=== PATIENT | female | born 1950 | race Caucasian/White ===

== ENCOUNTER 2017-09-05 05:01 | Inpatient (IN) | payer OTHER ==
[2017-08-14 13:34] VITALS: Ht 157.5 cm; Wt 83.0 kg
--- NOTE | 2017-08-21 12:36 | PAT Medication Instructions ---
Service Date Aug 21, 2017. Current Home Medication List Acetaminophen (Tylenol), 1,000 MG PO Q6 PRN for Pain Albuterol Hfa (Ventolin Hfa), 2-4 PUFFS INH Q6H PRN for SOB/Wheezing Albuterol Sulfate (Albuterol Sulfate), 1 VIAL NEB Q4 PRN for SOB/Wheezing Aspirin (Aspirin Ec), 81 MG PO HS Atenolol (Tenormin), 25 MG PO QAM Ezetimibe (Zetia), 10 MG PO HS Ferrous Sulfate (Iron), 1 TAB PO QAM Fluticasone Furoate (Inhalatio (Arnuity Ellipta), 1 PUFF INH QAM Glipizide (Glipizide Er), 10 MG PO QAM Lisinopril (Lisinopril), 5 MG PO QAM Meloxicam (Mobic), 7.5 MG PO BID Metformin Hcl (Glucophage), 1,000 MG PO BID Omeprazole (Prilosec), 20 MG PO HS Tramadol (Ultram), 50 MG PO Q4H PRN for Pain Medication Instructions For Your Scheduled Surgery - Per surgeon instructions: Meloxicam (Mobic), 7.5 MG PO BID - Hold the following medications the morning of surgery: Metformin Hcl (Glucophage), 1,000 MG PO BID Lisinopril (Lisinopril), 5 MG PO QAM Glipizide (Glipizide Er), 10 MG PO QAM Ferrous Sulfate (Iron), 1 TAB PO QAM - Take the following medications the morning of surgery with a sip of water: Acetaminophen (Tylenol), 1,000 MG PO Q6 PRN for Pain (okay to take up to 4 hours prior to surgery if needed) Albuterol Hfa (Ventolin Hfa), 2-4 PUFFS INH Q6H PRN for SOB/Wheezing (if needed) Albuterol Sulfate (Albuterol Sulfate), 1 VIAL NEB Q4 PRN for SOB/Wheezing (if needed) Atenolol (Tenormin), 25 MG PO QAM Fluticasone Furoate (Inhalatio (Arnuity Ellipta), 1 PUFF INH QAM Tramadol (Ultram), 50 MG PO Q4H PRN for Pain (okay to take up to 4 hours prior to surgery if needed) - Take the following medications as scheduled the night before surgery: Tramadol (Ultram), 50 MG PO Q4H PRN for Pain (if needed) Omeprazole (Prilosec), 20 MG PO HS Metformin Hcl (Glucophage), 1,000 MG PO BID Ezetimibe (Zetia), 10 MG PO HS Aspirin (Aspirin Ec), 81 MG PO HS Acetaminophen (Tylenol), 1,000 MG PO Q6 PRN for Pain (if needed) Albuterol Hfa (Ventolin Hfa), 2-4 PUFFS INH Q6H PRN for SOB/Wheezing (if needed) Albuterol Sulfate (Albuterol Sulfate), 1 VIAL NEB Q4 PRN for SOB/Wheezing (if needed) If you have any questions please call us at [phone] or [phone] or [phone]
[2017-09-05] VITALS (9 sets, daily range): BP systolic 93–125; BP diastolic 55–78; PULSE 63–72; TEMP 36.5–36.8; O2SAT 94–100
[~2017-09-05] VITALS: Ht 157.5 cm; Wt 83.0 kg
--- NOTE | 2017-09-05 00:06 | HISTORY & PHYSICAL EXAMINATION ---
DATE OF ADMISSION: 09/05/2017 CHIEF COMPLAINT: Primary osteoarthritis of the left hip. HISTORY OF PRESENT ILLNESS: Kristi is a very pleasant 66-year-old female who is having a several year history of increasing left hip pain. X-rays and clinical examination were diagnostic for primary osteoarthritis of the left hip. After failing extensive conservative treatment, she has elected to proceed with a left total hip arthroplasty. PAST MEDICAL HISTORY: Significant for non-insulin dependent diabetes, hyperlipidemia, hypertension, asthma, Lyme's disease, compression fracture at T9, and rheumatic fever as a child. PAST SURGICAL HISTORY: Significant for a tonsillectomy, hysterectomy, bilateral total knee arthroplasty done in [place], cholecystectomy, and a left total shoulder arthroplasty in 2016. ALLERGIES: FORMOTEROL, MOMETASONE, NAPROSYN, AND NITROFURANTOIN. MEDICATIONS: Include Glucophage, glipizide, Mobic, albuterol, Arnuity, aspirin, lisinopril, atenolol, tramadol, omeprazole, Zetia, and iron. FAMILY HISTORY: Denies. SOCIAL HISTORY: She is . She rarely drinks. She is active. Her is able to help take care of her after surgery. REVIEW OF SYSTEMS: She complains of left hip pain. All other pertinent review of systems are negative. PHYSICAL EXAMINATION: GENERAL: She is awake, alert, and oriented x3. She is in no apparent distress. She is very pleasant. HEENT: Pupils equal, round, reactive to light. Extraocular movements intact. Oral mucosa is pink and moist. HEART: Regular rate per radial pulse. LUNGS: Mily symmetrically bilaterally with no audible breath sounds. ABDOMEN: Soft, nontender, nondistended. MUSCULOSKELETAL: On physical examination of the hip, her leg lengths are equal. She has significant pain in the left groin. She is unable to flex to about 90 degrees. She only has 30 degrees of external rotation, 10 degrees of internal rotation. She has significant pain on range of motion. All of her pain is located in her groin. She does have a pannus, but it is fairly soft. IMAGING DATA: X-rays do show advanced osteoarthritis of the left hip with joint space narrowing, osteophyte formation, and [id number] articulation. IMPRESSION: Primary osteoarthritis of the left hip. PLAN: We will proceed with an anterior left total hip arthroplasty. Postoperatively, she will be placed on aspirin twice a day for DVT prophylaxis and kept in the hospital for postoperative medical management. She will be discharged to home with home nursing agency upon discharge.
[~2017-09-05 05:01] MED LIST: ACET-1256 PO; ALBU1.257 NEB; ASPI81TA28 PO; ATEN-173 PO; EZET10TA63 PO; FERR1TAB61 PO; FLUT1INH5 INH; GLIP-197 PO; LISI-730 PO; MELO7.5T5 PO; METF1000 PO; PRLSR20 PO; TRAM-10 PO; VNTHFA/IN INH
[2017-09-05] MEDS ORDERED: LACTATED RINGER'S 1000ML 500 ML IV SCH (06:00)
[2017-09-05] MEDS ORDERED: GABAPENTIN 300 MG CAP PO SCH (06:00)
[2017-09-05] MEDS ORDERED: LACTATED RINGER'S 1000ML IV SCH (06:00)
[2017-09-05] MEDS ORDERED: LACTATED RINGER'S 1000ML 1,000 ML IV SCH (06:00)
[2017-09-05] MEDS ORDERED: ROPIVACAINE 5MG/ML 30 ML 150 MG, BUPIVACAINE 0.5% MPF INJ 30 ML, EpINEphrine HCL INJ 0.... INFIL SCH ×8 (06:00)
[2017-09-05] MEDS ORDERED: FAMOTIDINE 20 MG TAB PO SCH (06:00)
[2017-09-05] MEDS ORDERED: ACETAMINOPHEN 500 MG TAB PO SCH (06:00)
[2017-09-05] MEDS ORDERED: BUPIVACAINE 0.5 % 5 MG/1 ML PF 10ML VIAL ONE (06:23)
[2017-09-05] MEDS: TRANEXAMIC ACID INJ 1,000 MG x 2 Bags IV SCH ×4 (06:30→07:00)
[2017-09-05] MEDS ORDERED: FENTANYL CITRATE INJ 50 MCG/1 ML 2 ML VIAL ONE (06:41)
[2017-09-05] MEDS ORDERED: MIDAZOLAM HCL 1 MG/ML 2ML VIAL ONE ×2 (06:41)
[2017-09-05] MEDS ORDERED: LIDOCAINE HCL 2% 2 ML VIAL (20MG/ML) ONE (06:46)
[2017-09-05] MEDS ORDERED: PROPOFOL IV EMULSION 10 MG/ML 20 ML VIAL ONE (06:46)
[2017-09-05] MEDS ORDERED: BACITRACIN 50000 UNIT VIAL ONE (06:52)
[2017-09-05] MEDS ORDERED: ORTHO JOINT ANESTHETIC ONE (06:52)
[2017-09-05] MEDS ORDERED: ONDANSETRON INJ 2 MG/ML 2 ML VIAL ONE (06:53)
--- NOTE | 2017-09-05 07:06 | History & Physical Bridge Note ---
H&P Re-Evaluation Bridge Note: I have examined the patient, reviewed the History & Physical and in the interval since the performance of the History & Physical I have noted the following changes of clinical significance: No changes noted
[2017-09-05] MEDS: CEFAZOLIN 2000MG IV PUSH 15 ML IV SCH ×2 (07:13→15:12)
[2017-09-05] MEDS ORDERED: EpHEDrine SULFATE 50MG/5ML SYR ONE (07:52)
[2017-09-05] MEDS ORDERED: PHENYLEPHRINE HCL INJ 10 MG/ML VIAL ONE (08:19)
[2017-09-05] MEDS ORDERED: HYDROmorphone INJ 0.5 MG/0.5 ML SYR IV PRN (09:00)
[2017-09-05] MEDS ORDERED: ONDANSETRON INJ 2 MG/ML 2 ML VIAL IV PRN ×2 (09:00→09:15)
[2017-09-05] MEDS ORDERED: LABETALOL HCL IV 5 MG/ML 20ML IV PRN (09:00)
[2017-09-05] MEDS ORDERED: MEPERIDINE HCL 25 MG/ML CARP IV PRN (09:00)
[2017-09-05] MEDS ORDERED: FENTANYL CITRATE INJ 50 MCG/1 ML 2 ML VIAL IV PRN (09:00)
[2017-09-05] MEDS ORDERED: EpHEDrine SULFATE INJ 50 MG/ML AMP IV PRN (09:00)
[2017-09-05] MEDS ORDERED: ATROPINE SULFATE 0.1 MG/ML 5ML SYR IV PRN (09:00)
[2017-09-05] MEDS ORDERED: PHARMACY GLYCEMIC MGMT CONSULT PRN (09:08)
--- NOTE | 2017-09-05 09:08 | [facility] Post Operative Brief Note ---
Immediate Operative Summary Operative Date Sep 05, 2017. Pre-Operative Diagnosis Primary osteoarthritis of the left hip Post-Operative Diagnosis Primary osteoarthritis of the left hip Procedure(s) Performed Left Anterior Total Hip Arthroplasty- Uncemented Surgeon Dr. Santiago Manager Night Surgeon(s) Rufino Infante PA-C Estimated Blood Loss 250 ml Findings Consistent with Post-Op Diagnosis Specimens a. left femoral head Anesthesia Type Spinal MAC
[2017-09-05] MEDS ORDERED: BISACODYL 10 MG SUPP PR PRN (09:15)
[2017-09-05] MEDS ORDERED: CEFAZOLIN IV 2,000 MG in DEXTROSE 5% 50ML 50 ML IV SCH (09:15)
[2017-09-05] MEDS ORDERED: CARBOHYDRATES FOR HYPOGLYCEMIA PO PRN (09:15)
[2017-09-05] MEDS ORDERED: DEXTROSE 50% 50 ML SYR IV PRN (09:15)
[2017-09-05] MEDS ORDERED: GLUCOSE 40% GEL 15 GM TUBE PO PRN (09:15)
[2017-09-05] MEDS ORDERED: ALBUTEROL HFA 8 GM INHALER INH PRN (09:15)
[2017-09-05] MEDS ORDERED: GLUCAGON FOR INJ 1 MG VIAL SQ PRN (09:15)
[2017-09-05] MEDS ORDERED: MoRPHine SULFATE 2 MG/ML CARP IV PRN (09:15)
[2017-09-05] MEDS ORDERED: METOCLOPRAMIDE HCL INJ 5 MG/ML 2 ML VIAL IV PRN (09:15)
[2017-09-05] MEDS ORDERED: MAGNESIUM HYDROXIDE SUSP 30 ML UDC PO PRN (09:15)
[2017-09-05] MEDS ORDERED: SOD PHOSPHATE/SOD BIPHOSPHATE ENEMA 132 ML BTL PR PRN (09:15)
[2017-09-05] MEDS ORDERED: GLUCOSE 10 TABS/TUBE PO PRN (09:15)
--- NOTE | 2017-09-05 09:16 | Discharge Instructions ---
Discharge Instructions Date of Service Sep 05, 2017. Admission Reason for Admission: Left Hip Degenerative Joint Disease Discharge Discharge Diagnosis / Problem: Left Total Hip Discharge Goals Goal(s): Decrease discomfort, Improve function Activity Recommendations Activity Limitations: as noted below . Instructions / Follow-Up Instructions / Follow-Up Activity and Therapy Recommendations: * If you are using [facility] then Physical Therapy will be provided until they feel you are ready to start Outpatient Physical Therapy. If you are not using a Home Health agency then Outpatient Physical Therapy should start about 3-5 days from your day of surgery. Therapy will last about 3-6 weeks * You were shown a series of exercises in the hospital. Do these exercises three times each day including the exercises you were shown in physical therapy. * Get up and walk several times each day.~ For the first four weeks, try not to stand or walk for more than one hour at a time. If you do stand or walk for more than one hour, you will not hurt anything, but your leg will likely swell.~ ~ * As you feel comfortable, you may change from the walker or crutches to a cane and~then to independent walking. Medications: * Narcotic You will likely be sent home from the hospital with a prescription for the narcotic pain medication that worked best throughout your stay. * Aspirin Most patients will be required to take Aspirin 325mg twice a day for 6 weeks after surgery. This is obtained [id number] and a prescription is not necessary. * Other medications may be prescribed for specific circumstances. If you have any questions, please call the office at . * Resume previous home medications unless otherwise instructed TEDs/Elastic Stockings: The white elastic stockings help limit swelling and prevent blood clots from forming in your legs. The more you wear them, the more they work. Wear them for six weeks. Dressing Care: You will likely have a purple VAC dressing after surgery. This dressing will keep the incision dry and promote early healing. After about 8 days the batteries will wear out and the VAC will lose suction. Simply remove the dressing at that time and throw everything away, including the small suction machine. Then, you may leave the emery open to air or cover them with a dry dressing so they do not rub on your pants. The emery will be removed at your 2 week follow-up appointment. Showering: You may shower immediately with the purple VAC dressing. Let the shower spray hit your opposite side and slowly pat the plastic dry. Do not soak the dressing. After the dressing is removed you may shower normally with the emery exposed. Let soapy water run over the emery and pat them dry. Things To Watch For: * Drainage from the incision site that occurs more than one week after your surgery. * Increased redness at the incision site. * Fever above 102 degrees Fahrenheit. * Unusual chest pain or shortness of breath. * Call [facility] at with any of the above problems Follow-Up Visit: Follow-up with Dr. Santiago 2 weeks after your day of surgery. An appointment was probably scheduled when you signed-up for surgery in the office. If you have any questions call Office Instructions: More detailed instructions as well as Frequently Asked Questions were provided in a folder by our office when you signed-up for surgery. Please review these instructions when you get home. If you have any further questions or concerns, please feel free to call the office at [phone] Current Hospital Diet Patient's current hospital diet: Diabetes Type 2 Diet Discharge Diet Recommended Diet: Diabetes Type 2 Diet Procedures Procedures Performed: Left Anterior Total Hip Arthroplasty- Uncemented Pending Studies Studies pending at discharge: no Medical Emergencies . Who to Call and When: Medical Emergencies: If at any time you feel your situation is an emergency, please call [phone] immediately. . Non-Emergent Contact Non-Emergency issues call your: Surgeon Call Non-Emergent contact if: wound has increased drainage, wound has increased redness . "Provider Documentation" section prepared by Arron Santiago. .
--- NOTE | 2017-09-05 10:02 | DIAGNOSTIC IMAGING REPORT ---
L PELVIS/UNILATERAL HIP 1 VIEW CLINICAL HISTORY: IN PACU - A/P PELVIS and LATERAL HIP INCLUDING ALL OF IMPLANT COMPARISON: None. DISCUSSION: Anatomic alignment post total left hip arthroplasty. Good contact between prosthetic and underlying bone. Expected soft tissue postoperative change. IMPRESSION: Anatomic alignment post total left hip arthroplasty. The above report was generated using voice recognition software. It may contain grammatical, syntax or spelling errors. Electronically signed by: Taran Moncada M.D. 09/05/2017 10:01 AM Dictated Date/Time: 09/05/2017 9:58 AM
--- NOTE | 2017-09-05 10:37 | OPERATIVE REPORT ---
DATE OF OPERATION: 09/05/2017 PREOPERATIVE DIAGNOSIS: Primary osteoarthritis of the left hip. POSTOPERATIVE DIAGNOSIS: Primary osteoarthritis of the left hip. PROCEDURE: Left total hip arthroplasty. SURGEON: Dr. Arron Santiago. ASSEMBLY MACHINE TOOL SETTER: Nelson Infante PA-C, whose assistance was necessary for retraction and closure. ANESTHESIA: Spinal. COMPLICATIONS: None. CONDITION: Stable to PACU. IMPLANTS USED: I used a [employer] Taperloc total hip arthroplasty system with a size 48 mm G7 cup with a single 30 mm screw and a neutral E-Poly liner, a size 5 high offset Taperloc stem and a 32 mm ceramic head with a -6 neck. INDICATIONS: Kristi is a pleasant 66-year-old female who presented to my office with chronic increasing left hip and groin pain. X-rays and clinical examination were diagnostic for primary osteoarthritis of the left hip. After failing conservative treatment, she elected to undergo a left total hip arthroplasty. OPERATION AND FINDINGS: On 09/05/2017, she arrived at [facility] for the above procedure. She was seen in the preoperative holding area and the operative extremity was identified and signed. She was given a preoperative antibiotic and a spinal anesthetic. She was taken back to operating room, laid on the table in supine position and put under basic sedation. The left leg was then brought out to a PURIST leg positioner. The left hip was then prepped and draped in sterile fashion. Time-out was done. The patient and operative extremity was properly identified. An anterior approach was used. Dissection was taken down through the fascia and the fascia muscle was retracted laterally and the rectus was retracted medially. Circumflex vessels were ligated and the capsule was exposed. The capsule was then incised and tagged for later repair. The femoral neck was then resected along the intertrochanteric line and the femoral head was removed. The acetabulum was then exposed. Time was spent doing a complete circumferential labral release. Sequential reaming of the acetabulum up to a size 47 reamer was done. Final reamings were done under fluoroscopy to ensure appropriate version. A 48 mm G7 cup was then impacted into place. A single 30 mm screw was placed and a neutral E-Poly liner was then snapped into place. The surrounding soft tissues were injected with 100 mL of an orthopedic pain control cocktail. The proximal femur was then exposed. Sequential broaching up to a size 5 broach was done. Off that broach, a high offset neck and a standard head were trialed. The hip was reduced. I was happy with the overall size of the implants but the hip was a little bit long. The hip was then dislocated. The broach was removed. The final size 5 high offset Taperloc stem was then impacted into place. A 32 mm ceramic head with a -6 neck was then impacted into place. Hip was reduced. Final fluoroscopic images showed anatomic sizing and alignment. The wound was then irrigated with 3 liters normal saline solution with bacitracin. The capsule was then closed with #1 Vicryl suture. Fascia was closed with #1 PDS suture. Skin was closed with 2-0 Vicryl and emery. A Prevena VAC dressing was then applied. She was then transferred to a hospital bed and taken to the postanesthesia care unit in stable condition. She tolerated the procedure well. I attest to the content of the Intraoperative Record and any orders documented therein. Any exception s are noted below.
--- NOTE | 2017-09-05 10:37 | Anesthesiology Progress Note ---
Anesthesia Post Op Note Date & Time Sep 05, 2017 at 10:36 Vital Signs Pain Intensity: 0 Vital Signs Past 12 Hours Date Time Temp Pulse Resp B/P (MAP) Pulse Ox O2 Delivery O2 Flow Rate FiO2 09/05/17 10:10 36.2 66 11 113/66 98 Nasal Cannula 2 09/05/17 10:00 68 12 109/62 97 Nasal Cannula 2 09/05/17 09:50 67 14 111/62 99 Oxymask 10 09/05/17 09:40 68 17 113/65 100 Oxymask 10 09/05/17 09:30 68 16 112/64 100 Oxymask 10 09/05/17 09:24 36.6 68 16 111/62 100 Oxymask 10 09/05/17 06:01 36.8 63 18 125/61 94 Room Air Notes Mental Status: alert / awake / arousable, participated in evaluation Pt Amnestic to Procedure: Yes Nausea / Vomiting: adequately controlled Pain: adequately controlled Airway Patency, RR, SpO2: stable & adequate BP & HR: stable & adequate Hydration State: stable & adequate Neuraxial Anesthesia: was administered, sensory block is resolving Anesthetic Complications: no major complications apparent
[2017-09-05] MEDS: TRAMADOL HCL 50 MG TAB PO PRN ×2 (11:40→20:04)
[2017-09-05] MEDS ORDERED: LANTUS PER UNIT CHARGE SQ ONE (11:45)
[2017-09-05] MEDS: KETOROLAC TROMETHAMINE 15 MG/ML VIAL IV. SCH ×3 (12:08→23:47)
--- NOTE | 2017-09-05 12:22 | DIAGNOSTIC IMAGING REPORT ---
L HIP UNILATERAL 1 VIEW CLINICAL HISTORY: LT ANTERIOR TOTAL hip replacement COMPARISON: None. DISCUSSION: Anatomic alignment post total left hip arthroplasty. Expected soft tissue postoperative change IMPRESSION: Anatomic alignment post total left hip arthroplasty. The above report was generated using voice recognition software. It may contain grammatical, syntax or spelling errors. Electronically signed by: Taran Moncada M.D. 09/05/2017 12:21 PM Dictated Date/Time: 09/05/2017 12:20 PM
--- NOTE | 2017-09-05 13:25 | Pharmacy Progress Note ---
Glycemic Control Intl Consult Date of Service Sep 05, 2017. Scope Glycemic Pharmacist consulted by Dr Santiago on 09/05/17 for glycemic control and to write orders per [facility] inpatient glycemic control protocol Objective Weight (Kilograms): 83.000 Accuchecks BSG (last 24hrs): Test 09/05/17 05:51 09/05/17 10:13 09/05/17 11:59 Bedside Glucose 140 mg/dl (70-90) 147 mg/dl (70-90) 151 mg/dl (70-90) Recent Pertinent Medications Outpatient Anti-diabetic Regimen: * Metformin 1 gm BID * Glipizide ER 10 mg qAM * A1c = 7 % 09/19/15 Risk Factors for Insulin Resistance: * Steroids: Decadron 4 mg in periarticular injection * Recent Surgery: POD #0 s/p L hip arthroplasty * Diet: type 2 diabetes diet ordered postop Assessment & Plan ASSESSMENT: * 66 y/o female admitted for L hip surgery, with type 2 diabetes * Pt is maintained on oral antidiabetic agents as an outpatient * Oral agents are not recommended for inpatient use d/t drug interactions, changing PO intake, and difficulty titrating for acute hyper/hypoglycemia. ADA recommends re-initiating outpatient oral agents 1-2 days prior to discharge if/ when appropriate if they were held on admission. * Will hold oral agents for admission and utilize SQ basal bolus insulin regimen which is the recommended regimen for inpatient glycemic control. * Will initiate weight based insulin dosing for insulin duong patient and titrate based on BSG trends. * Insulin dosing will be slightly more aggressive due to Decadron administration. Will utilize Lantus and Novolog doses between stress 2 and 3 based upon insulin calculator estimates. PLAN FOR INPATIENT GLYCEMIC CONTROL: * Hold outpatient oral diabetes medications - will plan to resume POD #1 if po consumption adequate and SCr stable * Basal insulin with LANTUS 18 units x 1 now * Correctional Insulin with NOVOLOG per scale ACHS or Q6hrs while NPO * Goal Range: Low 110 mg/dL - High 140 mg/dL * Correction Factor: 25 mg/dL/unit * Nutritional / Prandial insulin per carb ratio of 1 unit per 7 grams CHO consumed * A1c with AM labs to guide discharge recommendations * Please note that the plan above was derived based on current level of insulin resistance and hospital stress. These recommendations are appropriate for inpatient admission only. Plan of care upon discharge will need to be reassessed to avoid potential outpatient hypo/hyperglycemia. Thank you.
[2017-09-05] MEDS: INSULIN ASPART 100 UNITS/ML 3 ML PEN SC SCH ×3 (13:41→22:00)
[2017-09-05] MEDS: SODIUM CHLORIDE 0.9% 1000ML 1,000 ML IV SCH ×2 (14:01→19:31)
[2017-09-05] MEDS: ACETAMINOPHEN IV 1,000 MG in EMPTY BAG 0 ML IV SCH ×2 (14:42→21:58)
[2017-09-05] MEDS: CEFAZOLIN IV 2,000 MG in SYRINGE 0 ML IV SCH ×2 (15:12→21:57)
[2017-09-05] MEDS ORDERED: PANTOprazole SOD 40 MG TAB PO SCH (21:00)
[2017-09-05] MEDS: PANTOprazole SOD 40 MG TAB PO SCH (21:56)
[2017-09-05] MEDS: DOCUSATE SODIUM 100 MG CAP PO SCH (21:57)
[2017-09-05] MEDS: ASPIRIN 325 MG ECTAB PO SCH (21:57)
[2017-09-05] MEDS: SENNA 8.6 MG TAB PO SCH (21:57)
[2017-09-05] MEDS: EZETIMIBE 10MG TAB PO SCH (21:57)
[2017-09-06 03:27] VITALS: BP 93/57; PULSE 73; TEMP 36.4; O2SAT 93
[2017-09-06] MEDS: SODIUM CHLORIDE 0.9% 1000ML 1,000 ML IV SCH (05:03)
[2017-09-06] MEDS: ACETAMINOPHEN IV 1,000 MG in EMPTY BAG 0 ML IV SCH (05:41)
[2017-09-06] MEDS: KETOROLAC TROMETHAMINE 15 MG/ML VIAL IV. SCH ×4 (05:41→23:43)
[2017-09-06 06:13] LABS: BASO % 0.3 %; BASO ABS # 0.03 K/uL (0-0.2); EOS % 0.7 %; EOS ABS # 0.07 K/uL (0-0.5); HEMATOCRIT 23.7 % (37-47); HEMOGLOBIN 7.8 g/dL (12.0-16.0); IG# 0.05 K/uL (0.00-0.02); LYMPH % 17.1 %; LYMPH ABS # 1.72 K/uL (1.2-3.4); MEAN CELL VOLUME 82.6 fL (80-100); MEAN CORPUSCULAR HEMOGLOBIN 27.2 pg (25-34); MEAN CORPUSCULAR HGB CONC 32.9 g/dl (32-36); MEAN PLATELET VOLUME 9.5 fL (7.4-10.4); MONO % 7.3 %; MONO ABS # 0.73 K/uL (0.11-0.59); NEUT % 74.1 %; NEUT ABS # 7.46 K/uL (1.4-6.5); PLATELET COUNT 214 K/uL (130-400); RED CELL DISTRIBUTION WIDTH CV 18.8 % (11.5-14.5); RED CELL DISTRIBUTION WIDTH SD 57.6 fL (36.4-46.3); WHITE BLOOD COUNT 10.06 K/uL (4.8-10.8)
[2017-09-06 06:45] LABS: CALCIUM 7.2 mg/dl (8.5-10.1); CREATININE 0.89 mg/dl (0.60-1.20)
[2017-09-06 07:22] VITALS: BP 94/58; PULSE 68; TEMP 36.8; O2SAT 94
--- NOTE | 2017-09-06 07:48 | PROGRESS NOTE ---
DATE: 09/06/2017 CHIEF COMPLAINT: Status post left total hip arthroplasty postop day #1. PROGRESS: Kristi was seen and examined at bedside today. Overall, she is doing very well. She is not having too much pain in the hip. She has been up and ambulating around the room. She has not been into the hallway yet. She has been having some lateral thigh pain that the pain medicines help take care of that. She has no other complaints. PHYSICAL EXAMINATION: LEFT HIP: The Prevena VAC dressing is to suction. Her leg lengths are equal. She has active dorsiflexion, plantarflexion of her left ankle and sensation intact throughout. LABORATORY DATA: She has an H and H today of 7.8 and 23.7, however, she is normally anemic and this is not much lower than her baseline. Her glucose is 162. Her vital signs are all stable on room air and she is voiding on her own. X-rays postoperatively of the left hip show the prosthesis to be in anatomic alignment without any evidence of fracture, dislocation or loosening. IMPRESSION: Status post left total hip arthroplasty postop day #1. PLAN: At this point, she is doing as well as expected. She can be seen by physical therapy today and be up and ambulating. She is on aspirin for DVT prophylaxis. We will continue [place] and tramadol as needed for pain control. We planned to discharge her to home tomorrow with home nursing agency.
[2017-09-06] MEDS ORDERED: NURSING VERBAL MED ORDER ONE (08:00)
--- NOTE | 2017-09-06 08:05 | Clinical Documentation Query ---
RICHARD Allen : CLINICAL DOCUMENTATION QUERY Patient is a 66 year old female who underwent elective left ARIANA on 09/05. Preoperative H&H was 10.6 g/dl and 34.6%. POD #1, repeat values are 7.8 g/dl and 23.7%. EBL for the procedure was 250 ml's and net I/O is positive approximately 1,900 ml's at this time. She is being monitored with hematology and I/O. As appropriate, consider documentation as suggested below in order to capture the severity of illness and associated risk of mortality. Thank you. In your clinical opinion is this patient being managed for: ( ) Acute blood loss and hemodilutional anemia ( ) Not Agree (X ) Other explanation of clinical findings \\ Chronic iron deficiency anemia (No explanation is considered a No Response) ( ) Unable to determine ( ) Need to Discuss (Phone CDS or qliq) (No discussion is considered a No Response) The medical record reflects the following clinical findings, treatment, and risk factors. Clinical Indicators: As above Treatment:She is being monitored with hematology and I/O Risk Factors: Perioperative blood loss and IVF administration Please clarify and document your clinical opinion in the progress notes and discharge summary. Terms such as "probable", "suspected", "likely", "questionable", "possible", or "still to be ruled out" are acceptable. IF IN AGREEMENT, YOU MUST DOCUMENT ABOVE DIAGNOSTIC STATEMENT IN DAILY PROGRESS NOTES AND DISCHARGE SUMMARY. This document is not part of the patient's record. Thank You, Richard Sutherland, RN [phone]
[2017-09-06] MEDS: DOCUSATE SODIUM 100 MG CAP PO SCH ×2 (08:38→21:04)
[2017-09-06] MEDS: ASPIRIN 325 MG ECTAB PO SCH ×2 (08:39→21:04)
[2017-09-06] MEDS: LISINOPRIL 5 MG TAB PO SCH (08:39)
[2017-09-06] MEDS: MULTIVITAMIN TAB PO SCH (08:39)
[2017-09-06] MEDS: INSULIN ASPART 100 UNITS/ML 3 ML PEN SC SCH ×4 (08:42→21:09)
[2017-09-06] MEDS ORDERED: NON-FORMULARY MEDICATION (Fluticasone Furoate (Inhalatio (Arnuity Ellipta) 1 PUFF) INH SCH (09:00)
[2017-09-06] MEDS: FERROUS SULFATE 325 MG TAB PO SCH ×3 (09:04→18:24)
[2017-09-06] MEDS: METFORMIN HCL 500 MG TAB PO SCH ×2 (09:04→18:24)
[2017-09-06] MEDS: [UNRECOGNIZED DRUG - REMARK] INH SCH (09:21)
--- NOTE | 2017-09-06 10:18 | Pharmacy Progress Note ---
Pharmacy Glycemic Short Note 2 Date of Service Sep 06, 2017. OUTPATIENT ANTIDIABETIC REGIMEN: * Metformin 1 gm BID * Glipizide ER 10 mg qAM * A1c = 7 % 09/19/15 Test 09/05/17 10:13 09/05/17 11:59 09/05/17 17:33 09/05/17 20:22 Bedside Glucose 147 mg/dl (70-90) 151 mg/dl (70-90) 209 mg/dl (70-90) 242 mg/dl (70-90) Test 09/06/17 05:46 09/06/17 08:05 Random Glucose 162 mg/dl (70-99) Bedside Glucose 190 mg/dl (70-90) ASSESSMENT: 09/06/17 * POD 1 s/p L hip arthroplasty * Patient received 34 units of insulin yesterday and BSGs have been more elevated than I suspected with just receiving Decadron in the periarticular injection * Fasting BSG is improved this AM but still elevated * Will plan to resume oral agents since po intake is adequate and SCr stable. Will not provide additional basal because of this. Prandial insulin will be kept for breakfast but will d/c afterwards since the sulfonylurea will be on board. * Anticipate BSGs to continue to improve as steroid effects dissipate today 09/05/17 * 66 y/o female admitted for L hip surgery, with type 2 diabetes * Pt is maintained on oral antidiabetic agents as an outpatient * Oral agents are not recommended for inpatient use d/t drug interactions, changing PO intake, and difficulty titrating for acute hyper/hypoglycemia. ADA recommends re-initiating outpatient oral agents 1-2 days prior to discharge if/ when appropriate if they were held on admission. * Will hold oral agents for admission and utilize SQ basal bolus insulin regimen which is the recommended regimen for inpatient glycemic control. * Will initiate weight based insulin dosing for insulin duong patient and titrate based on BSG trends. * Insulin dosing will be slightly more aggressive due to Decadron administration. Will utilize Lantus and Novolog doses between stress 2 and 3 based upon insulin calculator estimates. PLAN FOR INPATIENT GLYCEMIC CONTROL: * Resume metformin 1 gm BID and glipizide ER 10 mg qAM * No further basal * Bolus insulin * NovoLog per scale ACHS or Q6hrs while NPO * Goal Range: Low 110 mg/dL - High 140 mg/dL * Correction Factor: 25 mg/dL/unit PLAN FOR DISCHARGE: * A1c is 7% (09/06/17), indicating excellent outpatient control * Continue outpatient regimen on discharge
[2017-09-06 10:55] VITALS: BP 101/65; PULSE 76; TEMP 37; O2SAT 95
[2017-09-06] MEDS: TRAMADOL HCL 50 MG TAB PO PRN (11:00)
[2017-09-06] MEDS: ACETAMINOPHEN 500 MG TAB PO SCH ×2 (14:03→21:05)
[2017-09-06 15:01] VITALS: BP 107/68; PULSE 77; TEMP 36.3; O2SAT 100
[2017-09-06 16:30] VITALS: O2SAT 100
[2017-09-06] MEDS: EZETIMIBE 10MG TAB PO SCH (21:04)
[2017-09-06] MEDS: PANTOprazole SOD 40 MG TAB PO SCH (21:04)
[2017-09-06] MEDS: SENNA 8.6 MG TAB PO SCH (21:04)
[2017-09-06 23:30] VITALS: BP 116/69; PULSE 79; TEMP 36.4; O2SAT 98
[2017-09-07] MEDS: TRAMADOL HCL 50 MG TAB PO PRN ×2 (03:17→11:20)
[2017-09-07] MEDS: ACETAMINOPHEN 500 MG TAB PO SCH (05:47)
[2017-09-07] MEDS: KETOROLAC TROMETHAMINE 15 MG/ML VIAL IV. SCH (05:48)
[2017-09-07 06:06] LABS: BASO % 0.2 %; BASO ABS # 0.02 K/uL (0-0.2); EOS % 4.9 %; EOS ABS # 0.48 K/uL (0-0.5); HEMATOCRIT 25.7 % (37-47); HEMOGLOBIN 8.2 g/dL (12.0-16.0); IG# 0.04 K/uL (0.00-0.02); LYMPH % 21.3 %; LYMPH ABS # 2.07 K/uL (1.2-3.4); MEAN CELL VOLUME 82.6 fL (80-100); MEAN CORPUSCULAR HEMOGLOBIN 26.4 pg (25-34); MEAN CORPUSCULAR HGB CONC 31.9 g/dl (32-36); MEAN PLATELET VOLUME 10.3 fL (7.4-10.4); MONO % 7.5 %; MONO ABS # 0.73 K/uL (0.11-0.59); NEUT % 65.7 %; NEUT ABS # 6.39 K/uL (1.4-6.5); PLATELET COUNT 253 K/uL (130-400); RED CELL DISTRIBUTION WIDTH CV 19.1 % (11.5-14.5); RED CELL DISTRIBUTION WIDTH SD 57.9 fL (36.4-46.3); WHITE BLOOD COUNT 9.73 K/uL (4.8-10.8)
[2017-09-07] MEDS ORDERED: TRAM-10 PO (07:22)
[2017-09-07] MEDS ORDERED: ASPEC325 PO (07:22)
[2017-09-07 07:31] VITALS: BP 108/70; PULSE 83; TEMP 36.8; O2SAT 94
--- NOTE | 2017-09-07 07:51 | PROGRESS NOTE ---
DATE: 09/07/2017 CHIEF COMPLAINT: Status post left total hip arthroplasty postop day #2. PROGRESS: Kristi was seen and examined at bedside today. Overall, she is doing very well. She has been up and walking around the hallways with physical therapy. Her pain is controlled. She has no complaints. PHYSICAL EXAMINATION: LEFT HIP: The Prevena VAC dressing is to suction. It was fixed yesterday by the wound VAC team. Her leg lengths are equal. She has active dorsiflexion and plantarflexion of the left ankle and sensation is intact. IMPRESSION: Status post left total hip arthroplasty postop day #2. PLAN: At this point, she is doing well and happy with her progress. She is participating well with physical therapy. Her pain is well controlled. We will continue aspirin for DVT prophylaxis. She will be discharged to home later today with home health services.
[2017-09-07] MEDS: INSULIN ASPART 100 UNITS/ML 3 ML PEN SC SCH (08:00)
[2017-09-07] MEDS: LISINOPRIL 5 MG TAB PO SCH (08:17)
[2017-09-07] MEDS: FERROUS SULFATE 325 MG TAB PO SCH (08:17)
[2017-09-07] MEDS: METFORMIN HCL 500 MG TAB PO SCH (08:18)
[2017-09-07] MEDS: DOCUSATE SODIUM 100 MG CAP PO SCH (08:18)
[2017-09-07] MEDS: MULTIVITAMIN TAB PO SCH (08:18)
[2017-09-07] MEDS: [UNRECOGNIZED DRUG - REMARK] INH SCH (08:18)
[2017-09-07] MEDS: ASPIRIN 325 MG ECTAB PO SCH (08:18)
--- NOTE | 2017-09-07 08:51 | DISCHARGE SUMMARY ---
DISCHARGE DIAGNOSIS: Primary osteoarthritis of the left hip. PROCEDURE: Left total hip arthroplasty on 09/05/[address] Arron Santiago. DISCHARGE INSTRUCTIONS: 1. Aspirin 325 mg twice a day for 6 weeks. 2. JAVID hose stockings for 6 weeks. 3. Tramadol 50 mg every 4 hours as needed for pain. 4. Tylenol as needed for pain. 5. Albuterol 1-2 puffs as needed. 6. Tenormin 25 mg daily. 7. Zetia 10 mg daily. 8. Iron 45 mg daily. 9. Flonase inhaler 1 puff daily. 10. Glipizide 10 mg daily. 11. Lisinopril 5 mg daily. 12. Mobic 7.5 mg twice a day. 13. Glucophage 1000 mg twice a day. 14. Prilosec 20 mg at night. 15. Prevena VAC dressing for 8 days. 16. Follow up with Dr. Santiago in 2 weeks. 17. Call the office of Dr. Santiago with any questions or concerns. HOSPITAL COURSE: Kristi is a pleasant 66-year-old female who presented to my office with chronic increasing left hip pain. X-rays and clinical examination were diagnostic for primary osteoarthritis of the left hip. After failing conservative treatment, she elected to undergo a left total hip arthroplasty. On 09/05/2017, she arrived at [facility] and underwent a left hip replacement without complication. She had a spinal anesthetic. Postoperatively, she was started on aspirin for DVT prophylaxis and discharged to general orthopedic floor. Her hospital course was uneventful. On postop day #1, her H and H was stable at 7.8 and 23.7. She felt good. She is normally anemic. She was up and ambulating well with physical therapy and her pain was well controlled. The Prevena VAC had lost suction and that was fixed by the wound VAC team. On postop day #2, she was doing even better. Her H and H was 8.2 and 25.7. She was feeling well. Her Prevena VAC dressing was to suction. Her pain was well controlled. She was subsequently discharged to home with home health nursing and the above instructions.
[2017-09-07 10:16] VITALS: BP 108/70; PULSE 83; TEMP 36.8; O2SAT 94
== END 2017-09-07 11:29 | disposition home health service (06) | DRG 470 ==
LOC: C.ACU 05:01 → C.3E 06:15 → ENRESERV 09:52
PROVIDERS: ADMIT Orthopaedic Surgery; ATTEND Orthopaedic Surgery
PROC: 0SRB04A Replacement of Left Hip Joint with Ceramic on Polyethylene Synthetic Substitute, Uncemented, Open Approach (ICD-10-PCS; principal; 2017-09-05 07:15)
DX: M16.12 Unilateral primary osteoarthritis, left hip (principal); E11.9 Type 2 diabetes mellitus without complications; I10 Essential (primary) hypertension; E78.5 Hyperlipidemia, unspecified; J45.909 Unspecified asthma, uncomplicated; Z79.899 Other long term (current) drug therapy; Z79.84 Long term (current) use of oral hypoglycemic drugs; Z79.1 Long term (current) use of non-steroidal anti-inflammatories (NSAID); Z79.82 Long term (current) use of aspirin; Z96.653 Presence of artificial knee joint, bilateral; Z96.612 Presence of left artificial shoulder joint

== ENCOUNTER 2023-12-11 07:25 | Observation (INO) ==
--- NOTE | 2023-11-01 12:54 | PAT Medication Instructions ---
Medication Instructions Date of Service November 01, 2023 Home Medications Theraworks 1 applic topical DIRECTED PRN Pain albuterol sulfate 90 mcg/actuation breath activated powder inhaler 2 inh inhalation Q4H PRN Wheezing amlodipine 5 mg tablet 5 mg PO HS aspirin 81 mg tablet,delayed release 81 mg PO QAM atenolol 50 mg tablet 50 mg PO QAM calcium carbonate 600 mg-vitamin D3 20 mcg (800 unit) tablet (Caltrate with Vitamin D3) 1 tab PO QAM cholecalciferol (vitamin D3) 50 mcg (2,000 unit) tablet (Vitamin D3) 50 mcg PO QAM cyanocobalamin (vitamin B-12) 1,000 mcg tablet 1,000 mcg PO QAM ezetimibe 10 mg tablet 10 mg PO HS ferrous sulfate 325 mg (65 mg iron) tablet 325 mg PO Q OTHER DAY fluticasone furoate 200 mcg-vilanterol 25 mcg/dose inhalation powder (Breo Ellipta) 1 inh inhalation QAM folic acid 400 mcg tablet 0.4 mg PO QAM glipizide 10 mg tablet, extended release 24 hr 10 mg PO QAM hydrochlorothiazide 12.5 mg tablet 12.5 mg PO DAILY PRN Edema linagliptin 5 mg tablet (Tradjenta) 5 mg PO QDD lisinopril 10 mg tablet 10 mg PO QAM metformin 1,000 mg tablet 1,000 mg PO BID omeprazole 40 mg capsule,delayed release 40 mg PO QAM rivaroxaban 20 mg tablet (Xarelto) 20 mg PO HS rosuvastatin 5 mg tablet 5 mg PO 2XWK tramadol 50 mg tablet 50 mg PO Q8H PRN Pain MEDICATION INSTRUCTIONS: Continue as directed fluticasone furoate 200 mcg-vilanterol 25 mcg/dose inhalation powder (Breo Ellipta) 1 inh inhalation QAM Theraworks 1 applic topical DIRECTED PRN Pain (do not apply after bathing prior to surgery) albuterol sulfate 90 mcg/actuation breath activated powder inhaler 2 inh inhalation Q4H PRN Wheezing (use if needed; BRING TO HOSPITAL) ASK your prescriber and surgeon rivaroxaban 20 mg tablet (Xarelto) 20 mg PO HS (for spinal anesthesia: must be off of Xarelto/rivaroxaban for at least 72 hours) aspirin 81 mg tablet,delayed release 81 mg PO QAM DO NOT take the morning of surgery lisinopril 10 mg tablet 10 mg PO QAM metformin 1,000 mg tablet 1,000 mg PO BID calcium carbonate 600 mg-vitamin D3 20 mcg (800 unit) tablet (Caltrate with Vitamin D3) 1 tab PO QAM cholecalciferol (vitamin D3) 50 mcg (2,000 unit) tablet (Vitamin D3) 50 mcg PO QAM hydrochlorothiazide 12.5 mg tablet 12.5 mg PO DAILY PRN Edema cyanocobalamin (vitamin B-12) 1,000 mcg tablet 1,000 mcg PO QAM folic acid 400 mcg tablet 0.4 mg PO QAM ferrous sulfate 325 mg (65 mg iron) tablet 325 mg PO Q OTHER DAY glipizide 10 mg tablet, extended release 24 hr 10 mg PO QAM Take morning of surgery With a small sip of water, OTHERWISE NOTHING TO EAT OR DRINK AFTER MIDNIGHT: atenolol 50 mg tablet 50 mg PO QAM omeprazole 40 mg capsule,delayed release 40 mg PO QAM rosuvastatin 5 mg tablet 5 mg PO 2XWK tramadol 50 mg tablet 50 mg PO Q8H PRN Pain Take evening before surgery amlodipine 5 mg tablet 5 mg PO HS metformin 1,000 mg tablet 1,000 mg PO BID tramadol 50 mg tablet 50 mg PO Q8H PRN Pain ezetimibe 10 mg tablet 10 mg PO HS linagliptin 5 mg tablet (Tradjenta) 5 mg PO QDD Other Notes If you have any questions please call us at [phone] or [phone] or [phone] or [phone]
--- NOTE | 2023-11-13 12:58 | Anesthesiology Consultation ---
Date of Service November 13, 2023 Assessment & Plan (1) Encounter for pre-operative examination: - check BSG am DOS. - Patient contacted PAT office requesting form be sent to Dr. Reed's office regarding Xarelto medication adjustment request to stop 3 days for neuraxial anesthesia. Form to be faxed to Dr. Reed's office. - cardiology pre-operative evaluation 10/12/23: "...h/o CVA and PAF...loop recorder generator is end of life...82 atrial runs longest 17 beats..remains on Xarelto...nonprogressive functional class II shortness of breath and fatigue...occasional palpitations...hip replacement...very mild CAD per cardiac cath 2021...A1c 7.7 and now on Tradjenta...would be considered low cardiac risk for upcoming hip replacement...follow up 6 months..." - implantable non-functioning loop recorder. - Outpatient joint assessment: Patient is currently scheduled for inpatient pathway. If re-evaluated and patient/surgeon requests outpatient pathway, patient is not ideal candidate for outpatient joint program from anesthesia standpoint. Chart Review Chart Review: Acceptable Risk for Surgery and Patient seen in Pre Admission Testing Teaching & Discussion Pre-Anesthesia Teaching/Discussion Notes: Instructed NPO after midnight before surgery, except medications with 15 cc of water. Medication instructions provided according to the [facility] guidelines. History Surgery Operation Date: 12/11/23 11:40 Proposed Procedures p Right Anterior Total Hip Arthroplasty - Arron Santiago, Height/Weight Height: 5 ft 2 in Weight: 75.5 kg Allergies Allergy/AdvReac Type Severity Reaction Status Date / Time formoterol Allergy Unknown JOINT PAIN Verified 11/01/23 11:47 mometasone furoate Allergy Unknown JOINT PAIN Verified 11/01/23 11:47 naproxen Allergy Unknown SEVERE Verified 11/01/23 11:47 BRUISING nitrofurantoin Allergy Unknown NAUSEA Verified 11/01/23 11:47 oxycodone Allergy Unknown RASH Verified 11/01/23 11:47 Medications Home Medications Medication Instructions Recorded Confirmed Last Taken Theraworks 1 applic topical DIRECTED PRN 11/01/23 11/01/23 Unknown Pain albuterol sulfate 90 mcg/actuation 2 inh inhalation Q4H PRN Wheezing 11/01/23 11/01/23 Unknown breath activated powder inhaler amlodipine 5 mg tablet 5 mg PO HS 11/01/23 11/01/23 Unknown aspirin 81 mg tablet,delayed 81 mg PO QAM 11/01/23 11/01/23 Unknown release atenolol 50 mg tablet 50 mg PO QAM 11/01/23 11/01/23 Unknown calcium 600 mg (as 1 tab PO QAM 11/01/23 11/01/23 Unknown carbonate)-vitamin D3 20 mcg (800 unit) tablet (Caltrate with Vitamin D3) cholecalciferol (vitamin D3) 50 50 mcg PO QAM 11/01/23 11/01/23 Unknown mcg (2,000 unit) tablet (Vitamin D3) cyanocobalamin (vitamin B-12) 1,000 mcg PO QAM 11/01/23 11/01/23 Unknown 1,000 mcg tablet ezetimibe 10 mg tablet 10 mg PO HS 11/01/23 11/01/23 Unknown ferrous sulfate 325 mg (65 mg 325 mg PO Q OTHER DAY 11/01/23 11/01/23 Unknown iron) tablet fluticasone furoate 200 1 inh inhalation QAM 11/01/23 11/01/23 Unknown mcg-vilanterol 25 mcg/dose inhalation powder (Breo Ellipta) folic acid 400 mcg tablet 0.4 mg PO QAM 11/01/23 11/01/23 Unknown glipizide 10 mg tablet, extended 10 mg PO QAM 11/01/23 11/01/23 Unknown release 24 hr hydrochlorothiazide 12.5 mg tablet 12.5 mg PO DAILY PRN Edema 11/01/23 11/01/23 Unknown linagliptin 5 mg tablet (Tradjenta) 5 mg PO QDD 11/01/23 11/01/23 Unknown lisinopril 10 mg tablet 10 mg PO QAM 11/01/23 11/01/23 Unknown metformin 1,000 mg tablet 1,000 mg PO BID 11/01/23 11/01/23 Unknown omeprazole 40 mg capsule,delayed 40 mg PO QAM 11/01/23 11/01/23 Unknown release rivaroxaban 20 mg tablet (Xarelto) 20 mg PO HS 11/01/23 11/01/23 Unknown rosuvastatin 5 mg tablet 5 mg PO 2XWK 11/01/23 11/01/23 Unknown tramadol 50 mg tablet 50 mg PO Q8H PRN Pain 11/01/23 11/01/23 Unknown Past Medical History Medical History Anemia stable at present per pt Asthma controlled, stable per pt; last albuterol inhaler use several months ago CAD (coronary artery disease) mild Chronic back pain Diabetes mellitus, type 2 NIDDM GERD (gastroesophageal reflux disease) controlled, stable per pt History of anesthesia reaction woke up in middle of knee replacement one time History of compression fracture of spine (~2000) T9 > no surgery, still has residual pain History of stroke (~2017) caused by the Afib > occ memory issues Hx of Lyme disease (~2015) denies known residual effects Hx of rheumatic fever as child Hyperlipidemia Hypertension controlled, stable per pt Osteoarthritis PAF (paroxysmal atrial fibrillation) dx 2018 > no pacer > has loop recorder but not functioning > Xarelto Pulmonary hypertension borderline, 32-37 mg 04/2023 echo Sleep apnea central > cpap Patient denies h/o seizures, heart attack, heart failure, blood clots/DVTs or blood transfusions. Exercise / Class Metabolic Activity II 4-5 Yardwork/Stairs/Walk up hill (denies chest discomfort or shortness of breath with one flight of stairs) Past Surgical History Surgical History History of bilateral tubal ligation History of cardiac cath > no stents History of cholecystectomy History of colonoscopy History of esophagogastroduodenoscopy (EGD) History of hysterectomy History of tonsillectomy History of total hip arthroplasty left History of total knee replacement bilat History of total shoulder replacement left Hx of LASIK Past Anesthesia History No Family Hx of Anesthesia Complications History of PONV No Hx of Motion Sickness and History of PONV (denies needing scop patch) Social History Smoking Status: Never smoker Do You Dip or Chew Tobacco: No Hx Alcohol Use: No Hx Substance Use: No substance use type: does not use Review of Systems Patient denies chest pain, fever, chills, cough, or wheezing. Physical Exam Vital Signs Vitals BP 111/64 P 64 TEMP 97.8 SP02 95% on RA RESP 18 Physical Patient resting comfortably in chair in no acute distress, alert and oriented, responding appropriately throughout visit Full cervical extension range of motion without pain TMD 3.5 finger breadths Mallampati Score 2 Dentition: intact, denies chipped or loose teeth, caps/crowns, implants or br idges Lungs: normal respiratory effort. Good air movement, clear throughout to auscultation, no adventitious breath sounds Cardiac: regular rate and rhythm, no murmurs noted Carotid arteries: negative bruit bilat Lab Results Anesthesia Preop Results Results Anesthesia Widget: WBC 6.83 K/ul (4.8-10.8) 11/13/23 Hgb 11.5 g/dl (12.0-16.0) L 11/13/23 Hct 35.2 % (37.0-47.0) L 11/13/23 Plt 206 K/uL (130-400) 11/13/23 Na 139 mmol/L (136-145) 11/13/23 K 4.3 mmol/L (3.5-5.1) 11/13/23 Cl 103 mmol/L (98-107) 11/13/23 CO2 25 mmol/L (21-32) 11/13/23 BUN 13 mg/dl (6-23) 11/13/23 Creat 0.77 mg/dl (0.6-1.2) 11/13/23 Glucose Level 98 mg/dl (70-99(Fasting)) 11/13/23 PT 12.1 Seconds (9.0-12.0) H 11/13/23 PTT 32 Seconds (21-31) H 11/13/23 INR 1.1 (0.9-1.1) 11/13/23 HA1c 6.9 % (4.5-5.6) H 11/13/23 Blood Type O Positive 11/13/23 Antibody Screen NEGATIVE 11/13/23 Testing Electrocardiogram Date: 11/13/23 Sinus rhythm with PACs, rate 72 bpm Minimal voltage criteria for LVH, may be normal variant Chest X-Ray Date: 11/13/23 No active disease in the chest. Echocardiogram Date: 05/02/23 EF 55-60% Mild cLVH Mildly calcified aortic valve and trileaflet noted, opens normally Mild mitral regurgitation Mild tricuspid regurgitation Borderline pulmonary hypertension, "estimated RSVP 32-37 mmHg" Stress Test Date: 12/14/21 Medium reversible apical defect of moderate intensity EF 66% Cardiac Catheterization Date: 12/27/21 Left main: no significant disease LAD: 30% proximal disease Cx: no angiographic disease RCA: 30% proximal disease Very mild CAD Other Testing Carotid doppler 12/14/21 Minimal plaque in the right ICA Normal left ICA
--- NOTE | 2023-12-07 07:25 | History & Physical Report ---
Date of Service December 07, 2023 Assessment & Plan (1) Osteoarthritis of right hip: We will proceed with a right anterior total of arthroplasty. Postoperatively she will be started on Xarelto for DVT prophylaxis and kept overnight hospital for postop medical management. She plans to have the hospital set up home health for discharge. History of Present Illness Chief Complaint: Osteoarthritis of the right hip. Primary Care Provider: Jf Henao MD Kristi is a pleasant 72-year-old female who I did a left hip replacement on in 2018. She has done very well with that. She is now having right hip pain. Most of her pain is in her groin and radiates around to her gluteal region. X- rays clinical examination been diagnostic for advanced osteoarthritis of the right hip. After failed conservative treatment, she has elected to proceed with a right anterior total hip arthroplasty. Allergies Allergy/AdvReac Type Severity Reaction Status Date / Time formoterol Allergy Unknown JOINT PAIN Verified 11/01/23 11:47 mometasone furoate Allergy Unknown JOINT PAIN Verified 11/01/23 11:47 naproxen Allergy Unknown SEVERE Verified 11/01/23 11:47 BRUISING nitrofurantoin Allergy Unknown NAUSEA Verified 11/01/23 11:47 oxycodone Allergy Unknown RASH Verified 11/01/23 11:47 Home Medications Medication Instructions Recorded Confirmed Type Theraworks 1 applic topical DIRECTED PRN 11/01/23 11/01/23 History Pain albuterol sulfate 90 mcg/actuation 2 inh inhalation Q4H PRN Wheezing 11/01/23 11/01/23 History breath activated powder inhaler amlodipine 5 mg tablet 5 mg PO HS 11/01/23 11/01/23 History aspirin 81 mg tablet,delayed 81 mg PO QAM 11/01/23 11/01/23 History release atenolol 50 mg tablet 50 mg PO QAM 11/01/23 11/01/23 History calcium 600 mg (as 1 tab PO QAM 11/01/23 11/01/23 History carbonate)-vitamin D3 20 mcg (800 unit) tablet (Caltrate with Vitamin D3) cholecalciferol (vitamin D3) 50 50 mcg PO QAM 11/01/23 11/01/23 History mcg (2,000 unit) tablet (Vitamin D3) cyanocobalamin (vitamin B-12) 1,000 mcg PO QAM 11/01/23 11/01/23 History 1,000 mcg tablet ezetimibe 10 mg tablet 10 mg PO HS 11/01/23 11/01/23 History ferrous sulfate 325 mg (65 mg 325 mg PO Q OTHER DAY 11/01/23 11/01/23 History iron) tablet fluticasone furoate 200 1 inh inhalation QAM 11/01/23 11/01/23 History mcg-vilanterol 25 mcg/dose inhalation powder (Breo Ellipta) folic acid 400 mcg tablet 0.4 mg PO QAM 11/01/23 11/01/23 History glipizide 10 mg tablet, extended 10 mg PO QAM 11/01/23 11/01/23 History release 24 hr hydrochlorothiazide 12.5 mg tablet 12.5 mg PO DAILY PRN Edema 11/01/23 11/01/23 History linagliptin 5 mg tablet (Tradjenta) 5 mg PO QDD 11/01/23 11/01/23 History lisinopril 10 mg tablet 10 mg PO QAM 11/01/23 11/01/23 History metformin 1,000 mg tablet 1,000 mg PO BID 11/01/23 11/01/23 History omeprazole 40 mg capsule,delayed 40 mg PO QAM 11/01/23 11/01/23 History release rivaroxaban 20 mg tablet (Xarelto) 20 mg PO HS 11/01/23 11/01/23 History rosuvastatin 5 mg tablet 5 mg PO 2XWK 11/01/23 11/01/23 History tramadol 50 mg tablet 50 mg PO Q8H PRN Pain 11/01/23 11/01/23 History Past Med/Surg History Problem List Encounter for pre-operative examination Osteoarthritis of right hip Contusion of knee Osteoarthritis of shoulder Osteoarthritis of left hip Medical History CAD (coronary artery disease) mild Pulmonary hypertension borderline, 32-37 mg 04/2023 echo Chronic back pain Hx of rheumatic fever as child Hx of Lyme disease (~2015) denies known residual effects History of anesthesia reaction woke up in middle of knee replacement one time History of compression fracture of spine (~2000) T9 > no surgery, still has residual pain GERD (gastroesophageal reflux disease) controlled, stable per pt Diabetes mellitus, type 2 NIDDM History of stroke (~2018) caused by the Afib > occ memory issues PAF (paroxysmal atrial fibrillation) dx 2018 > no pacer > has loop recorder but not functioning > Xarelto Anemia stable at present per pt Hypertension controlled, stable per pt Hyperlipidemia Sleep apnea central > cpap Osteoarthritis Asthma controlled, stable per pt; last albuterol inhaler use several months ago Surgical History History of cardiac cath > no stents History of total hip arthroplasty left History of total shoulder replacement left History of total knee replacement bilat History of bilateral tubal ligation History of esophagogastroduodenoscopy (EGD) History of colonoscopy History of cholecystectomy History of hysterectomy Hx of LASIK History of tonsillectomy Social History Smoking Status: Never smoker Second Hand Exposure: No; Do You Dip or Chew Tobacco: No; Hx Alcohol Use: No Hx Substance Use: No Preferred Language: [place] Communication Ability: Effective Mattress Filling Machine Tender Required: No Beliefs That Will Affect Care: None Current Living Situation: Spouse Feels Safe at Home: Yes Assistive Devices: CPAP and Glasses Review of Systems All systems reviewed & are unremarkable except as noted in HPI & below. Physical Exam On physical exam of the right hip, she has decreased range of motion. She has pain with forced internal/external rotation. All of her pain is located in the groin.. Constitutional WD/WN, vitals as above Eyes PERRL, conjunctivae normal, anicteric sclerae ENMT external ear and nose normal, oropharynx normal Neck trachea midline, no thyromegaly Respiratory normal respiratory effort Cardiovascular RRR, no murmur, no edema Gastrointestinal (Abdomen) normal bowel sounds, soft, nontender, no hepatosplenomegaly Psychiatric A+Ox3, euthymic affect Results & Data Results & Data Laboratory Results . Diagnostic Findings X-rays of the right hip show advanced osteoarthritis with joint space narrowing, osteophyte formation, and [id number] articulation. PG Care Time/CCT Total # of Minutes Spent Total Time Spent with Patient: Total time spent is greater than 50% in coordination of care (as documented) at patient's floor/unit and/or counseling patient: Coding Level of Care Code None Diagnoses Osteoarthritis of right hip M16.11
[~2023-12-11 07:25] MED LIST changes: -ACET-1256 PO; -ALBU1.257 NEB; -ASPI81TA28 PO; -ATEN-173 PO; -EZET10TA63 PO; -FERR1TAB61 PO; -FLUT1INH5 INH; -GLIP-197 PO; -LISI-730 PO; -MELO7.5T5 PO; -METF1000 PO; +MIDAZOLAM HCL 1 MG/ML 2ML VIAL ONE; -PRLSR20 PO; +ROPIVACAINE 0.5% 5 MG/ML 30 ML VIAL ONE; -TRAM-10 PO; -VNTHFA/IN INH
[2023-12-11] MEDS ORDERED: fentaNYL citrate PF 100 MCG/2 ML VIAL ONE (07:31)
--- NOTE | 2023-12-11 08:07 | History & Physical Bridge Note ---
Date of Service December 11, 2023 History & Physical Bridge Note I have examined the patient, reviewed the History & Physical and in the interval since the performance of the History & Physical I have noted the following changes of clinical significance: no changes noted
[2023-12-11] MEDS: dexAMETHasone**PF** 10 MG/ML VIAL IV SCH (08:33)
[2023-12-11] MEDS: FAMOTIDINE 20 MG TAB PO SCH (08:33)
[2023-12-11] MEDS: GABAPENTIN 300 MG CAP PO SCH (08:33)
[2023-12-11] MEDS: ACETAMINOPHEN 500 MG TAB PO SCH (08:33)
[2023-12-11] MEDS: LR 60ML/HR IV SCH (08:34)
[2023-12-11] MEDS: LR 500ML BOLUS, THEN 15ML/HR IV SCH (08:34)
[2023-12-11] MEDS ORDERED: ONDANSETRON INJ 2 MG/ML 2 ML VIAL IV PRN ×2 (08:41→13:03)
[2023-12-11] MEDS ORDERED: ePHEDrine sulfate 50 MG/ML AMP IV PRN (08:41)
[2023-12-11] MEDS ORDERED: HYDROmorphone INJ 1 MG/ML SYRINGE IV PRN (08:41)
[2023-12-11] MEDS ORDERED: ATROPINE SULFATE 0.1 MG/ML 10ML SYR IV PRN (08:41)
[2023-12-11] MEDS: TRANEXAMIC ACID 1,000 MG **IV Pre-op IV SCH (08:47)
[2023-12-11] MEDS: ceFAZolin 2000MG 2,000 MG/15 ML SYR IV SCH (08:57)
[2023-12-11] MEDS ORDERED: MIDAZOLAM HCL 1 MG/ML 2ML VIAL ONE (08:59)
[2023-12-11] MEDS ORDERED: ONDANSETRON INJ 2 MG/ML 2 ML VIAL ONE (09:04)
[2023-12-11] MEDS ORDERED: PROPOFOL IV EMULSION 10 MG/ML 20 ML VIAL IV ONE (09:04)
[2023-12-11] MEDS ORDERED: LIDOCAINE 2% 2 ML VIAL/AMP(20MG/ML) INFIL ONE (09:04)
[2023-12-11] MEDS: ORTHO JOINT ANESTHETIC ONE (09:27)
[2023-12-11] MEDS: ROPIV 0.5% 246mg, Ketorolac 30mg, EPINEPHrine 0.5mg in NSS INFIL SCH (09:27)
[2023-12-11] MEDS: TRANEXAMIC ACID 1,000 MG **IV Intra-op IV SCH (09:50)
--- NOTE | 2023-12-11 10:01 | Operative Report ---
PG Post Operative Report Pre & Post Diagnosis Operation Date: 12/11/23 09:00 Pre-Op Diagnosis: Osteoarthritis Right Hip Post-Op Diagnosis: Osteoarthritis Right Hip I identified the patient and participated in the time-out.: Yes Procedure Operation Date: 12/11/23 09:00 Actual Procedures p Right Anterior Total Hip Arthroplasty, Uncemented(Right) - Arron Santiago DO Surgeon Arron Santiago DO Needle Polisher Leroy Briggs PA-C Estimated Blood Loss 250 Findings Consistent with Post-Op Diagnosis Specimens Right femoral head Description of Procedure Implants used I used a ZimmerBiomet total hip arthroplasty system with a size 1 high offset Avenir Complete stem, a 48 mm G7 cup with a 25mm screw, an E1 polyethylene liner, a 32 mm ceramic head with a -3.5 neck. Kritsi arrived at the hospital for the above procedure. She was seen in the preoperative holding area and the operative extremity was identified and signed. She was given a spinal anesthetic, a preoperative antibiotic, and TXA. She was then taken back to the operating room and laid on the table in the supine position. She was given basic sedation. The operative leg was secured to a Puristst leg positioner. The hip was then prepped and draped in sterile fashion. A timeout was done and the patient and the operative extremity was properly identified. An anterior approach was used. Dissection was taken down through the fascia and the tensor muscle belly was retracted laterally and the rectus was retracted medially. The circumflex vessels were identified and ligated. The capsule was then incised and tagged for later repair. The femoral neck was then cut and the femoral head was removed. The acetabulum was exposed. Time was spent doing a complete circumferential labral release. Sequential reaming of the acetabulum up to a size 47 reamer was done. Final reamings were done under fluoroscopy to ensure appropriate version. A Biomet 48 mm G7 cup was then impacted into place. A single 25 mm screw was placed. The E1 polyethylene liner was then snapped into place. Surrounding soft tissues were then injected with 100 cc of an orthopedic pain control cocktail. The proximal femur was then exposed. Sequential broaching up to a size 1 broach was done. Off that broach a size 32 head with a -3.5 neck was trialed. The hip was reduced and fluoroscopic images showed anatomic alignment of the implants in acceptable length. The broach was removed. The final size 1 high offset Avenir Complete stem was then impacted into place. A ceramic 32 mm head with a -3.5 neck was then impacted onto the stem and the hip was reduced. Final fluoroscopic images showed anatomic alignment of the hip. The capsule was then closed with #1 Vicryl suture. A dilute betadyne lavage was then done for 3 minutes. The joint was then irrigated with normal saline solution. The fascia was closed with #1 PDS suture. Skin was closed with 2-0 Vicryl, emery, and a Silverlon dressing. She was then transferred to a hospital bed and taken to the post anesthesia care unit in stable condition. She tolerated the procedure well. Leroy Briggs PA-C, was present for the entire procedure. He was critical for patient positioning, prepping, draping, retraction exposure, wound closure and application of sterile dressing. I attest to the content of the Intraoperative Record and any orders documented therein. Any exceptions are noted below.
[2023-12-11] MEDS: fentaNYL citrate PF 100 MCG/2 ML VIAL IV PRN (10:35)
[2023-12-11] MEDS ORDERED: PHARMACY GLYCEMIC MGMT CONSULT PRN (10:38)
--- NOTE | 2023-12-11 11:00 | Fluoroscopy Report ---
FL hip RT 1V CLINICAL HISTORY: RIGHT ANTERIOR ARIANA COMPARISON STUDY: Right hip radiographs September 26, 2023. FLUOROSCOPY TIME: 12 seconds. Ka,r: 1.1590 mGy FLUOROSCOPIC IMAGES: 1 FINDINGS: Fluoroscopy was provided during anterior total right hip arthroplasty. Alignment is anatomi c. Hardware is intact. There are no fractures. There are no unexpected radiopaque foreign body. Aceta bular screw is in place. IMPRESSION: Fluoroscopy provided during anterior total right hip arthroplasty. ACT 112: Negative or not required by law. Electronically signed by: William Isabel M.D. 12/11/2023 10:58 AM
[2023-12-11] MEDS ORDERED: ePHEDrine sulfate 50 MG/5 ML SYR ONE (12:01)
--- NOTE | 2023-12-11 12:42 | XRay Report ---
XR chest 1V portable CLINICAL HISTORY: Chest pain COMPARISON STUDY: Chest radiograph November 13, 2023. FINDINGS: Left shoulder arthroplasty is in place. Electronic device projects over the left chest. The re is no pneumothorax or pleural effusion. Cardiomegaly is unchanged. There is pulmonary vascular con gestion. Linear bilateral mid lung densities favor atelectasis. There is no consolidation to suggest pneumonia. IMPRESSION: 1. Cardiomegaly with pulmonary vascular congestion. 2. Linear bilateral midlung densities suggestive of atelectasis. ACT 112: Negative or not required by law. Electronically signed by: William Isabel M.D. 12/11/2023 12:41 PM
[2023-12-11] MEDS ORDERED: bisacodyL 10 MG SUPP PR PRN (13:03)
[2023-12-11] MEDS ORDERED: METOCLOPRAMIDE HCL INJ 5 MG/ML 2 ML VIAL IV PRN (13:03)
[2023-12-11] MEDS ORDERED: [UNRECOGNIZED DRUG - OTHER] TOP PRN (13:03)
[2023-12-11] MEDS ORDERED: ACETAMINOPHEN 1,000 MG/100 ML VIAL IV PRN (13:03)
[2023-12-11] MEDS ORDERED: MAGNESIUM HYDROXIDE SUSP 30 ML UDC PO PRN (13:03)
[2023-12-11] MEDS ORDERED: NALOXONE HCL 0.4 MG/1 ML VIAL/CARP IV PRN (13:03)
[2023-12-11] MEDS ORDERED: hydroCHLOROthiazide 25 MG TAB PO PRN (13:03)
[2023-12-11] MEDS ORDERED: ALBUTEROL HFA 8 GM INHALER INH PRN (13:08)
--- NOTE | 2023-12-11 13:21 | Anesthesiology Progress Note ---
Date of Service December 11, 2023 Anesthesia Post Procedure Vital Signs Vital Signs: Temp Pulse Pulse Resp BP Pulse Ox O2 Del Method 12/11/23 13:00 36.6 C 66 17 132/69 95 Nasal Cannula 12/11/23 12:40 61 14 129/60 97 Nasal Cannula 12/11/23 12:30 66 14 129/61 97 Nasal Cannula 12/11/23 12:20 61 13 126/64 99 Nasal Cannula 12/11/23 12:10 61 14 132/63 97 Nasal Cannula 12/11/23 12:00 60 16 126/54 L 95 Nasal Cannula 12/11/23 11:50 59 L 15 121/58 L 98 Nasal Cannula 12/11/23 11:40 36.5 C 60 14 121/59 L 94 Nasal Cannula 12/11/23 11:30 65 14 120/58 L 95 Nasal Cannula 12/11/23 11:20 73 18 125/54 L 96 Nasal Cannula 12/11/23 11:10 69 15 137/49 L 96 Oxymask 12/11/23 11:00 66 11 L 132/63 97 Oxymask 12/11/23 10:50 71 21 127/64 97 Oxymask 12/11/23 10:40 63 18 122/57 L 99 Oxymask 12/11/23 10:30 74 21 126/58 L 98 Oxymask 12/11/23 10:21 36.8 C 67 17 119/2 L 92 Oxymask 12/11/23 08:14 36.4 C L 65 20 148/80 H 97 Room Air O2 Flow Rate 12/11/23 13:00 2 12/11/23 12:40 2 12/11/23 12:30 2 12/11/23 12:20 2 12/11/23 12:10 2 12/11/23 12:00 2 12/11/23 11:50 2 12/11/23 11:40 2 12/11/23 11:30 2 12/11/23 11:20 2 12/11/23 11:10 4 12/11/23 11:00 4 12/11/23 10:50 4 12/11/23 10:40 4 12/11/23 10:30 4 12/11/23 10:21 4 12/11/23 08:14 Pain Intensity Right Hip: Pain Intensity: 3 Chest: Pain Intensity: 0 Transfer of Care Handoff Completed per policy Notes Mental Status: alert / awake / arousable and participated in evaluation Patient Amnestic to Procedure: Yes Nausea / Vomiting: adequately controlled Pain: adequately controlled and see Notes below Airway Patency, RR, SpO2: stable & adequate BP & HR: stable & adequate Hydration State: stable & adequate Anesthetic Complications: no major complications apparent and Pt Satisfied with anesthetic care Notes: pt c/o substernal chest pain that was ache in nature. non reproducible. it did radiate to center of her back but not to her jaw or arms. pt ekg showed pac. pt was cta b/l. her chest xray showed unchanged cardiomegaly. It also showed vascular congestion. pt troponin was normal. Pt is now resting comfortably after IV fentanyl. Pt physical exam was benign and she has had a cardiac work up within 5 years. I do not feel lasix is warranted at this time because the patients physical exam (absence of rales) and other test results. pt is stable for transfer out of pacu
[2023-12-11] MEDS ORDERED: DEXTROSE 50% 50 ML SYRINGE IV PRN (13:45)
[2023-12-11] MEDS ORDERED: GLUCOSE 40% GEL 15 GM TUBE PO PRN (13:45)
[2023-12-11] MEDS ORDERED: GLUCOSE 10 TAB/TUBE PO PRN (13:45)
[2023-12-11] MEDS ORDERED: CARBOHYDRATES FOR HYPOGLYCEMIA PO PRN (13:45)
[2023-12-11] MEDS ORDERED: GLUCAGON FOR INJ 1 MG VIAL SQ PRN (13:45)
--- NOTE | 2023-12-11 13:54 | Pharmacy Report ---
Pharmacy Glycemic Short Note 2 - Date of Service December 11, 2023 - Glycemic Short BSG Results (Last 24 hours): 12/11/23 12/11/23 12/11/23 07:56 10:23 13:14 POC Glucose 82 131 H 179 H OUTPATIENT ANTIDIABETIC REGIMEN: * Glipizide 10mg po q AM * Metformin 1000mg po bid * Tradjenta 5mg po daily HbA1c: 6.9% on11/13/23 ASSESSMENT: * 73 year old female admitted today for a right total hip arthroplasty (POD #0). Pharmacy has been consulted for glycemic management postop. * She received 10mg iv dexamethasone x 1 preop and BSG prior to surgery was 82mg/dL. * Postop BSG increased to 179, so a weight based bolus insulin regimen was started with slightly looser parameters than a stress of 2 (mainly due to fasting BSG on the lower end this morning). * Will not start basal insulin yet. Will reassess need tomorrow morning. PLAN FOR INPATIENT GLYCEMIC CONTROL: * Hold outpatient oral diabetes medications * Bolus insulin * NovoLog per scale ACHS or Q6hrs while NPO * Goal Range: Low 110 mg/dL - High 140 mg/dL * Correction Factor: 35 mg/dL/unit * Nutritional / Prandial insulin per carb ratio of 1 unit per 15 grams CHO consumed
[2023-12-11] MEDS: traMADol HCL 50 MG TABLET PO PRN (14:36)
[2023-12-11] MEDS: INSULIN ASPART PER UNIT CHARGE SC SCH (14:37)
[2023-12-11] MEDS: FERROUS SULFATE 325 MG TAB PO SCH (14:38)
--- NOTE | 2023-12-11 15:12 | Electrocardiogram Report ---
Test Reason : Blood Pressure : */* mmHG Vent. Rate : 65 BPM Atrial Rate : 65 BPM P-R Int : 186 ms QRS Dur : 80 ms QT Int : 414 ms P-R-T Axes : 42 -6 21 degrees QTcB Int : 430 ms Sinus rhythm with Premature atrial complexes Otherwise normal ECG When compared with ECG of 13-Nov-2023 13:36, No significant change was found Confirmed by Clint Kelley ([id number]) on 12/11/2023 3:12:10 PM Referred By: Arron Santiago Confirmed By: Clint Kelley
[2023-12-11] MEDS ORDERED: LANTUS PER UNIT CHARGE SC SCH (16:30)
[2023-12-11] MEDS ORDERED: INSULIN ASPART PER UNIT CHARGE SC SCH (16:30)
[2023-12-11] MEDS: ROSUVASTATIN CALCIUM 5 MG TAB PO SCH (16:45)
[2023-12-11] MEDS: ceFAZolin 1000MG 1,000 MG/7.5 ML SYR IV SCH (16:53)
[2023-12-11] MEDS: LANTUS PER UNIT CHARGE SC ONE (17:39)
[2023-12-11] MEDS: amLODIPine BESYLATE 5 MG TAB PO SCH (20:37)
[2023-12-11] MEDS: EZETIMIBE 10 MG TAB PO SCH (20:37)
[2023-12-11] MEDS: DOCUSATE SODIUM 100 MG CAP PO SCH (20:38)
[2023-12-11] MEDS: SENNA 8.6 MG TAB PO SCH (20:38)
[2023-12-11] MEDS ORDERED: metFORMIN HCL 500 MG TAB PO SCH (21:00)
--- NOTE | 2023-12-12 06:21 | Orthopedic Progress Note ---
Date of Service December 12, 2023 Assessment & Plan (1) Status post right hip replacement: Overall she is doing fairly well. She is not having much pain in the right hip. She will be seen by physical therapy today for ambulation and range of motion exercises. She is on Xarelto for DVT prophylaxis. She can be discharged to home later today. She will follow-up with orthopedics in 2 weeks. Vicky Berry was seen and examined at bedside this morning. Overall she is doing fairly well. She is not having much pain in the right hip. She has been up and ambulating to the bathroom. She has no complaints.. Review of Systems All systems reviewed & are unremarkable except as noted in HPI & below. Physical Exam On physical exam of the right hip, the dressing is clean and dry. Her leg is out full extension. She has active dorsiflexion plantarflexion of her right ankle.. Results & Data Results & Data Laboratory Results . Diagnostic Findings Postoperative x-rays of the right hip show the prosthesis to be in anatomic alignment without any evidence of fracture complication, or loosening.. PG Care Time/CCT Total # of Minutes Spent Total Time Spent with Patient: Total time spent is greater than 50% in coordination of care (as documented) at patient's floor/unit and/or counseling patient: Coding Level of Care Code 27405 Post Operative Follow-Up Diagnoses Status post right hip replacement Z96.641
--- NOTE | 2023-12-12 06:22 | Discharge Summary ---
Date of Service December 12, 2023 Admission HPI (Per Admitting) Kristi is a pleasant 72-year-old female who I did a left hip replacement on in 2018. She has done very well with that. She is now having right hip pain. Most of her pain is in her groin and radiates around to her gluteal region. X- rays clinical examination been diagnostic for advanced osteoarthritis of the right hip. After failed conservative treatment, she has elected to proceed with a right anterior total hip arthroplasty. Admission Exam (Per Admitting) On physical exam of the right hip, she has decreased range of motion. She has pain with forced internal/external rotation. All of her pain is located in the groin.. Principal Diagnosis Same as "Discharge Diagnosis" noted below under Discharge Instructions. Discharge Exam On physical exam of the right hip, the dressing is clean and dry. Her leg is out full extension. She has active dorsiflexion plantarflexion of her right ankle.. Discharge Data Procedures Performed Operation Date: 12/11/23 09:00 Actual Procedures p Right Anterior Total Hip Arthroplasty, Uncemented(Right) - Arron Santiago DO Ordered Studies 12/11/23 [place] hip RT 1V Routine Hospital Course (1) Status post right hip replacement: On December 11, 2023 Kristi arrived at [facility] and underwent a right hip replacement without complication. She had a spinal anesthetic. Postoperatively she was started on Xarelto for DVT prophylaxis and transferred to the general orthopedic floors. Her hospital course was uneventful. On postop day #1, her vital signs were stable and her pain was well-controlled. She was able to participate well with physical therapy doing ambulation and range of motion exercises. She was then discharged to home. She will follow-up with orthopedics in 2 weeks. PG Care Time/CCT Total # of Minutes Spent Total Time Spent with Patient: Total time spent is greater than 50% in coordination of care (as documented) at patient's floor/unit and/or counseling patient: Discharge Plan Discharge Items Patient Disposition: Home - Self-Care Reason For Visit: Arthritis Right Hip Discharge Diagnosis: Status post right hip replacement Activity: Per Instructions section Non-emergency contact: Surgeon Call non-emergency contact if: your wound has increased redness and your wound has increased drainage Follow-up/Referrals: Jf Henao MD [Primary Care Provider] - Diet: Regular Addtl Attending Provider Instructions: Activity and Therapy Recommendations: * If you are using [facility] then therapy will be provided at your home until they feel you have accomplished all of your goals. * If you are using [facility] then Physical Therapy will be provided until they feel you are ready to start Outpatient Physical Therapy. * If you are not using home therapy then Outpatient Physical Therapy should start about 3-5 days from your day of surgery. Therapy will last about 6-10 weeks * You were shown a series of exercises in the hospital. Do these exercises three times each day including the exercises you were shown in physical therapy. * Get up and walk several times each day.~ For the first four weeks, try not to stand or walk for more than one hour at a time. If you do stand or walk for more than one hour, you will not hurt anything, but your leg will likely swell.~~ * As you feel comfortable, you may change from the walker or crutches to a cane and~then to independent walking. Medications: * Narcotic You will likely be sent home from the hospital with a prescription for the narcotic pain medication that worked best throughout your stay. * Cefadroxil -take the antibiotic twice a day for 10 days to help prevent infection. * Takes Xarelto 10 mg daily for 2 weeks. Then, resume your 20 mg daily dosing. * Other medications may be prescribed for specific circumstances. If you have any questions, please call the office at . * Resume previous home medications unless otherwise instructed TEDs/Elastic Stockings: The white elastic stockings help limit swelling and prevent blood clots from forming in your legs. The more you wear them, the more they work. Wear them for six weeks. Dressing Care: Leave the Silverlon dressing in place for 7 days. After 7 days you may remove the dressing. If the incision is not draining then you may leave the emery open to air. If there is a little bit of drainage or if the emery are getting stuck on your clothing then cover the incision with a dry dressing. The emery will be removed at your 2 week follow-up appointment. Showering: You may shower with the Silverlon dressing in place. Do not let the shower spray hit the dressing directly. Pat the Silverlon dressing dry. If the dressing becomes wet underneath, then simply remove the dressing. Keep the incision dry until you are 7 days out from the day of surgery. After 7 days you may remove the Silverlon dressing and shower with the emery exposed. Let soapy water run over the emery and pat them dry. Do not scrub or soak the incision. Diet: You may resume your previous diet. Things To Watch For: * Drainage from the incision site that occurs more than one week after your maria c blake. * Increased redness at the incision site. * Fever above 102 degrees Fahrenheit. * Unusual chest pain or shortness of breath. * Call [facility] at with any of the above problems Follow-Up Visit: Follow-up with Dr. Santiago's PA (Arron Blair) 2-3 weeks after your day of surgery. He will remove your emery and answer any questions. If you have any additional questions or concerns, Dr Santiago is usually in the office at the same time and will be available An appointment was probably scheduled when you signed-up for surgery in the off ice. If you have any questions call Office Instructions: More detailed instructions as well as Frequently Asked Questions were provided in a folder by our office when you signed-up for surgery. Please review these instructions when you get home. If you have any further questions or concerns, please feel free to call the office at [phone] Pending Studies at Discharge: No Stand-Alone Forms: My [facility] [employer], Smoking Cessation Medications and DC Order Prescriptions: New Xarelto 10 mg Tablet 10 mg PO Q24H Qty: 14 0RF cefadroxil 500 mg capsule 500 mg PO BID 10 Days Qty: 20 0RF oxycodone 5 mg tablet 5 mg PO Q6H PRN (Reason: pain) Qty: 30 0RF Continued glipizide 10 mg Tablet Extended Release 24hr 10 mg PO QAM cyanocobalamin (vitamin B-12) 1,000 mcg Tablet 1,000 mcg PO QAM amlodipine 5 mg Tablet 5 mg PO HS folic acid 400 mcg Tablet 0.4 mg PO QAM omeprazole 40 mg Capsule,Delayed Release(Dr/Ec) 40 mg PO QAM tramadol 50 mg Tablet 50 mg PO Q8H PRN (Reason: Pain) ferrous sulfate 325 mg (65 mg iron) Tablet 325 mg PO Q OTHER DAY metformin 1,000 mg Tablet 1,000 mg PO BID lisinopril 10 mg Tablet 10 mg PO QAM atenolol 50 mg Tablet 50 mg PO QAM ezetimibe 10 mg Tablet 10 mg PO HS rosuvastatin [Crestor] 5 mg Tablet 5 mg PO 2XWK Patient Comments: M/ Rx Instructions: taken twice weekly in evening per patient hydrochlorothiazide 12.5 mg Tablet 12.5 mg PO DAILY PRN (Reason: Edema) cholecalciferol (vitamin D3) [Vitamin D3] 50 mcg (2,000 unit) Tablet 50 mcg PO QAM Tradjenta 5 mg Tablet 5 mg PO QDD calcium carbonate-vitamin D3 [Caltrate with Vitamin D3] 600 mg-20 mcg (800 unit) Tablet 1 tab PO QAM fluticasone furoate-vilanterol [Breo Ellipta] 200-25 mcg/dose Blister With Device 1 inh INHALATION QAM albuterol sulfate 90 mcg/actuation Aerosol Powdr Breath Activated 2 inh INHALATION Q4H PRN (Reason: Wheezing) [employer] 1 applic topical DIRECTED PRN (Reason: Pain) aspirin [Aspir-81] 81 mg Tablet,Delayed Release (Dr/Ec) 81 mg PO QAM Held Xarelto 20 mg Tablet 20 mg PO HS Hold Instructions: Resume on 12/26/23. Rx Instructions: must administer with evening meal Discharge Orders: Discharge Order (Routine); Ordered 12/12/23 Ordered By: Arron Santiago Admission Data Admit Date/Time: 12/11/23 10:37 Attending Provider: Arron Santiago Admit Provider: Arron Santiago Primary Care Provider: Jf Henao
[2023-12-12 07:00] VITALS: BP 146/69; PULSE 62; RESP 15; TEMP 98.4; O2SAT 95
[2023-12-12] MEDS: ASPIRIN 81 MG ECTAB PO SCH (07:46)
[2023-12-12] MEDS: MULTIVITAMIN TAB PO SCH (07:47)
[2023-12-12] MEDS: ATENOLOL 50 MG TABLET PO SCH (07:47)
[2023-12-12] MEDS: CHOLECALCIFEROL 25 MCG (1000 UNITS) TAB PO SCH (07:47)
[2023-12-12] MEDS: lisinopril 10 MG TAB PO SCH (07:47)
[2023-12-12] MEDS: CALCIUM 600MG + VIT D 400 IU TAB PO SCH (07:47)
[2023-12-12] MEDS: FOLIC ACID 400 MCG TAB PO SCH (07:47)
[2023-12-12] MEDS: PANTOprazole 40 MG TAB PO SCH (07:47)
[2023-12-12] MEDS: CYANOCOBALAMIN (B-12) 500 MCG TABLET PO SCH (07:48)
[2023-12-12] MEDS: HYDROmorphone INJ 0.5 MG/0.5 ML SYR IV PRN (07:48)
[2023-12-12] MEDS: FLUTICASONE/VILANTEROL 200/25MCG 14 PUFFS/INHALER INH SCH (07:49)
[2023-12-12] MEDS ORDERED: glipiZIDE ER 2.5 MG TABCR PO SCH (09:00)
[2023-12-12] MEDS: RIVAROXABAN 10 MG TABLET PO SCH (09:05)
--- NOTE | 2023-12-12 10:04 | XRay Report ---
Indication:rt hip post op ekm/mcs Comparison studies: Radiographs of the pelvis and left hip dated 10/24/2017 Technique: Single view of the pelvis Exam: PELVIC STUDY: FINDINGS: Hip arthroplasties. No periprosthetic fracture or lucency.Right lateral thigh soft tissue swelling with subcutaneous emphysema. Skin emery overlying the incision.No evidence for fracture or dislocation. No lytic or blastic area. No evidence for soft tissue pelvic mass. Degenerative sclerosis of the pubic symphysis. IMPRESSION: Expected postoperative changes of the right hip arthroplasty without evidence of complication. Electronically signed by Salomon Garcia 12-12-2023 10:03 AM
== END 2023-12-12 11:43 | disposition home or self-care (01) ==
LOC: 3E 07:25 → ASU 07:25